=== PATIENT | female | born 1970 | race Caucasian/White ===

== ENCOUNTER → 2023-07-14 12:59 | Outpatient (REF) | payer OTHER, SELFPAY | LOC: WDC 12:59 | PROVIDERS: ATTENDING PHYSICIAN Family Medicine | DX: Z12.31 Encounter for screening mammogram for malignant neoplasm of breast (principal) | CPT/HCPCS: 77063; 77067 ==

== ENCOUNTER → 2023-10-29 08:53 | Outpatient (REF) | payer OTHER, SELFPAY | LOC: WDC 08:53 | PROVIDERS: ATTENDING PHYSICIAN Family Medicine | DX: R92.2 Inconclusive mammogram (principal) | CPT/HCPCS: 76641 ==

== ENCOUNTER → 2024-07-14 12:35 | Outpatient (REF) | payer OTHER, SELFPAY | LOC: WDC 12:35 | PROVIDERS: ATTENDING PHYSICIAN Obstetrics & Gynecology; FAMILY PHYSICIAN Family Medicine | DX: Z12.31 Encounter for screening mammogram for malignant neoplasm of breast (principal) | CPT/HCPCS: 77063; 77067 ==

== ENCOUNTER → 2024-09-05 08:26 | Outpatient (REF) | payer OTHER, SELFPAY | LOC: WDC 08:26 | PROVIDERS: ATTENDING PHYSICIAN Family Medicine | DX: N63.20 Unspecified lump in the left breast, unspecified quadrant (principal); N63.22 Unspecified lump in the left breast, upper inner quadrant | CPT/HCPCS: 76642 ==

== ENCOUNTER → 2024-12-13 09:54 | Outpatient (REF) | payer OTHER, SELFPAY | LOC: WDC 09:54 | PROVIDERS: ATTENDING PHYSICIAN Surgery; FAMILY PHYSICIAN Family Medicine | DX: R92.30 Dense breasts, unspecified (principal) | CPT/HCPCS: 76641 ==

== ENCOUNTER 2025-03-06 21:48 | Emergency (ER) | payer OTHER, SELFPAY ==
[2025-03-06 21:51] VITALS: BP 148/92
--- NOTE | 2025-03-07 00:10 | ED.GENMED ---
History of Present Illness
General
Chief Complaint: Head Injury
Source: patient
Exam Limitations: none
Time Seen by Provider: 03/07/25 00:07
Nursing documentation reviewed up to this point in time: agreed with
History of Present Illness
History of Present Illness:
Note:
CHIEF COMPLAINT(S)
Headache following a head injury.
HISTORY OF PRESENT ILLNESS
The patient is a 54-year-old female who presents with a headache after hitting her head on a low ceiling while moving furniture around her home. She describes the impact as having occurred at the top of her head when she stood up into the edge of
the ceiling. The headache began immediately and persisted throughout the day, with twinges of pain in areas of the head that were not directly impacted. She denies dizziness, visual changes, nausea, vomiting, syncope, or focal neurological deficits.
She reports that the pain is severe enough to have brought her to the emergency department. The patient has a history of a transient ischemic attack two years ago but has had no significant issues since. She takes fish oil and is on estrogen. She
denies taking aspirin or any other blood thinners. The patient reports lay-term concerns about a possible concussion but denies experiencing any worsening symptoms, like neck pain or stiffness. Her neurologic examination by me did not reveal any
abnormalities.
PAST MEDICAL AND SURGICAL HISTORY
The patient has a history of a transient ischemic attack (TIA) about two years ago. She also reported low iron levels in the past, treated with dietary changes.
PHYSICAL EXAM
General: Patient is well appearing and in no acute distress; non-toxic
Skin: Warm and dry, no rashes or lesions
Head: Normocephalic, atraumatic
Eyes: Sclera non-icteric. EOMs intact.
Neck: No midline cervical spinal tenderness, full ROM of cervical spine
Cardiac: Regular rate
Pulm: Normal respiratory effort
Neuro: CN II-XII intact, no focal neurologic deficits. Normal gait, normal [id number], normal finger-nose.
Psychiatric: Appropriate mood and affect.
PLAN
The patient will undergo a CT scan to rule out any intracranial bleeding or abnormalities given her concern due to ongoing headache and circumstances of the head injury.
DIFFERENTIAL DIAGNOSIS
- The Differential Diagnosis includes, in no particular order and is not limited to:
- Concussion
- Intracranial hemorrhage
- Cervical strain
- Tension-type headache
- Migraine headache
- Post-concussive syndrome
- Temporal arteritis
- Sinusitis
- Subdural hematoma
- Drug-induced headache
SUMMARY OF ENCOUNTER
The patient presented to the emergency department for evaluation after experiencing a headache due to hitting her head on a low ceiling. Given the patients history of transient ischemic attack and the impact of the headache, we decided to perform a
CT scan to rule out possible intracranial injury. The patients neurological examination by me was unremarkable, and there were no signs of neurologic deficit.
DISPOSITION
Awaiting CT results for further management.
MEDICAL DECISION MAKING
- Chronic conditions affecting care: The patient�s past medical history of transient ischemic attack (TIA) is considered.
- Data:
- Category 1: My independent interpretation of the neurological examination was noted.
- Risk:
- Prescription medication management was not initiated at this time.
DIAGNOSIS
- Possible concussion (S06.0X0A)
- Headache (R51.9)
PATIENT EDUCATION AND COUNSELING
The patient was informed of the potential for post-concussion symptoms and advised on signs of worsening condition, such as increased headache severity, confusion, or neurologic changes, for which she should seek immediate medical attention.
FOLLOW-UP INSTRUCTIONS
The patient is advised to follow up with her primary care provider or return to the emergency department if symptoms worsen or new symptoms develop.
Disposition:
SUMMARY OF ENCOUNTER
The patient is a 54-year-old female who presented to the emergency department with a headache following blunt head trauma. She accidentally bumped her head hard against a wall and has experienced persistent pain since the incident. Due to her
concern about potential complications if a CT scan was not performed, a CT scan of the head was ordered. The CT scan results revealed no signs of intracranial bleeding. Her neurologic examination was unremarkable, indicating there were no neurologic
deficits. The clinical assessment suggests a possibility of a concussion.
DISPOSITION
Awaiting CT results for further management.
ASSESSMENT
Post-traumatic headache and possible concussion following head injury.
PLAN
The plan is to monitor the patient for post-concussion symptoms and advise her on signs of potential worsening that would necessitate immediate medical attention. The patient was informed of the results of the CT scan, which ruled out intracranial
hemorrhage, and reassured her about the absence of acute intracranial injury.
INDEPENDENT REVIEW OF LABS AND INTERPRETATION OF TESTS
- My independent interpretation of the CT scan showed no signs of intracranial bleeding or abnormalities.
PATIENT EDUCATION AND COUNSELING
The patient was informed about post-concussion symptoms and was advised to watch for signs of increased headache severity, confusion, or neurologic changes. If these occur, she should seek immediate medical attention.
FOLLOW-UP INSTRUCTIONS
The patient is advised to follow up with her primary care provider or return to the emergency department if symptoms worsen or new symptoms develop.
MEDICAL DECISION MAKING
- Number and Complexity of Problems Addressed: Chronic conditions affecting care include a history of transient ischemic attack. Differential diagnosis includes concussion, intracranial hemorrhage, cervical strain, tension-type headache, migraine
headache, post-concussive syndrome, temporal arteritis, sinusitis, and subdural hematoma.
- Data:
- Category 1: My independent interpretation of the CT scan showed no intracranial bleeding.
- Risk: Consideration of Admission/Observation: Escalation of care including admission/observation was considered given the complexity and risk of the patients presenting complaint. However, I feel the patient is safe for outpatient management with
close follow-up since the work-up is reassuring and does not reveal any acute life-threatening processes.
DIAGNOSIS
- Possible concussion (S06.0X0A)
- Headache (R51.9)
Past History
Past History
ED Past Medical History: Other (Neck pain, Pinched nerve in neck, )
ED Past Surgical History: Other (Rhinoplasty)
Social History
Tobacco: Non-smoker
Alcohol: Occasional
Drug: None
Personal:
Living: with family
Phy Exam
Physical Exam
Physical Exam:
see hpi
Course
Orders/Labs/Results
Orders:
Orders
03/07/25 00:21
CT Head W/o Iv Contrast Urgent
Comment:
Reason For Exam: persistent headache following blunt injury
Vital Signs
Initial and Last Documented VS:
Initial Vital Signs
Pulse Resp BP Pulse Ox
67 18 148/92 98
03/06/25 21:51 03/06/25 21:51 03/06/25 21:51 03/06/25 21:51
Last Documented Vital Signs
Pulse Resp BP Pulse Ox
64 18 140/90 98
03/07/25 02:06 03/07/25 02:06 03/07/25 02:06 03/07/25 02:06
*Pulse Oximetry
SaO2: 98
Oxygen Mode of Delivery: Room air
Patient hypoxic: no
*Critical Care Note
Total Time (30-74mins, 75-104mins- exclusive of procedures): Not Applicable
ED Attending Note
-
Portions of this chart may have been created with voice recognition software.� Occasional wrong word or��sound alike� substitutions may have occurred due to the inherent limitations of voice recognition software.
Discharge Plan
Departure
Patient Disposition: Home (Routine Discharge)
Date of Disposition: 03/07/25
Time of Disposition: 02:00
Patient with high blood pressure during this ER visit?: Yes
Condition: Good
Discharge Problem:
Concussion
Instructions: Concussion, Adult (DC), Head Injury in Adults (DC), BLOOD PRESSURE
Prescriptions:
No Action
famotidine 10 mg Tablet
10 mg PO Q48H
ferrous sulfate 325 mg (65 mg iron) Tablet
325 mg PO DAILY
magnesium 250 mg Tablet
250 mg PO DAILY
cholecalciferol (vitamin D3) [Vitamin D3] 25 mcg (1,000 unit) Capsule
25 mcg PO DAILY
levocetirizine [Xyzal] 5 mg Tablet
5 mg PO HS
coQ10 (ubiquinol) 100 mg Capsule
100 mg PO DAILY
omega 3-dfj-dlq-fish oil [Fish Oil] 1,000 mg (120 mg-180 mg) Capsule
1 cap PO DAILY
aspirin 81 mg tablet,delayed release (DR/EC)
81 mg PO DAILY Qty: 30 0RF
Referrals:
Sathish Tan MD [Family Provider, Internal Medicine]
Activity Restrictions/Additional Instructions:
As discussed, please follow-up your primary care provider. Please take a break from those activities that worsen your symptoms. You can take Tylenol and Motrin as needed for pain.
PLEASE RETURN TO ER SHOULD YOU DEVELOP VISUAL LOSS, INTRACTABLE NAUSEA OR VOMITING, DIZZINESS, LOSS CONSCIOUSNESS, OR ANY SIGNS OR SYMPTOMS RECENTLY.
Interventions
Interventions:
*General Assessment Last Done: 03/06/25 22:26
*Neglect/Abuse Screening Last Done: 03/06/25 21:51
*ED COVID-19 Vaccine History Last Done: 03/06/25 22:26
*ED Influenza Vaccine History Last Done: 03/06/25 22:26
[facility] Risk Assessment Tool Last Done: 03/06/25 22:24
*Risk Screen - Suicide (C-SSRS) Last Done: 03/06/25 21:51
*Nursing Disposition Last Done: 03/07/25 02:06
ED- Neurological Assessment Last Done: 03/06/25 22:27
ED-Skin Assessment Last Done: 03/06/25 22:27
Discharge Date and Time
Discharge Date/Time: 03/07/25 02:06
Print Language: [id number]
[2025-03-07 02:06] VITALS: BP 140/90
== END 2025-03-07 02:06 | disposition home or self-care (01) ==
LOC: EMR 21:48
PROVIDERS: EMERGENCY PHYSICIAN Student in an Organized Health Care Education/Training Program; FAMILY PHYSICIAN Internal Medicine
DX: S06.0X0A Concussion without loss of consciousness, initial encounter (principal); W22.01XA Walked into wall, initial encounter; Y93.E9 Activity, other interior property and clothing maintenance; Y92.009 Unspecified place in unspecified non-institutional (private) residence as the place of occurrence of the external cause; R03.0 Elevated blood-pressure reading, without diagnosis of hypertension; G58.9 Mononeuropathy, unspecified; Z79.82 Long term (current) use of aspirin; Z86.73 Personal history of transient ischemic attack (TIA), and cerebral infarction without residual deficits
CPT/HCPCS: 99284; 70450